=== PATIENT | female | born 1980 | race Caucasian/White ===

== ENCOUNTER 2016-07-23 16:19 | Emergency (ER) | payer MEDICAID ==
--- NOTE | 2016-07-23 16:37 | ER Document Report ---
ED Medical Screen (RME) - General Stated Complaint: COUGH Time seen by provider: 16:36 Mode of Arrival: Ambulatory Information source: Patient TRAVEL OUTSIDE OF THE [place] IN LAST 30 DAYS: No - HPI Patient complains to provider of: COUGH, CONGESTION, SINUS PAIN Onset: Last week Onset/Duration: Sudden Context: HX BRONCHITIS AND SINUS INFECTION EVERY YEAR PER PT Severity: Severe Pain Level: 5 Associated Symptoms: Chills, Cough (productive), Headache, Sinus pain/drainage. denies: Fever Exacerbated by: Denies, Standing Similar symptoms previously: Yes Recently seen / treated by doctor: Yes - DENTAL SURGERY LAST FRIDAY - Related Data Smoking: Cigarettes Frequency of alcohol use: None Drug Abuse: None Allergies/Adverse Reactions: ibuprofen [From Motrin] Allergy (Severe, Verified 07/23/16 16:30) SEVERE ABDOMINAL PAIN latex [Latex] Allergy (Severe, Verified 07/23/16 16:30) severe skin irritation Penicillins Allergy (Severe, Verified 07/23/16 16:30) THROAT/TONGUE SWELLING aspirin [Aspirin] Allergy (Intermediate, Verified 07/23/16 16:30) SEVERE ABD PAIN Past Medical History - Past Medical History Cardiac Medical History: Denies: Hx Coronary Artery Disease, Hx Heart Attack, Hx Hypertension Pulmonary Medical History: Reports: Hx Asthma, Hx Bronchitis, Hx COPD Denies: Hx Pneumonia Neurological Medical History: Reports: Hx Migraine. Denies: Hx Cerebrovascular Accident, Hx Seizures Endocrine Medical History: Denies: Hx Diabetes Mellitus Type 1, Hx Diabetes Mellitus Type 2 Musculoskeltal Medical History: Denies Hx Arthritis, Reports Hx Musculoskeletal Deformity, Reports Hx Musculoskeletal Trauma Psychiatric Medical History: Reports: Hx Anxiety, Hx Bipolar Disorder Past Surgical History: Reports: Hx Abdominal Surgery - Ventral hernias, Hx Appendectomy, Hx Oral Surgery - [place] teeth, Hx Orthopedic Surgery - L arm, Hx Tubal Ligation - Immunizations Immunizations up to date: Yes Hx Diphtheria, Pertussis, Tetanus Vaccination: Yes Physical Exam - Vital signs Vitals: Temp Pulse Resp BP Pulse Ox 97.7 F 99 16 148/87 H 96 07/23/16 16:22 07/23/16 16:22 07/23/16 16:22 07/23/16 16:22 07/23/16 16:22 Course - Vital Signs Vital signs: Temp Pulse Resp BP Pulse Ox 97.7 F 99 16 148/87 H 96 07/23/16 16:22 07/23/16 16:22 07/23/16 16:22 07/23/16 16:22 07/23/16 16:22
[2016-07-23] MEDS ORDERED: ACETAMINOPHEN 325 MG TABLET PO ONE (18:09)
[2016-07-23] MEDS ORDERED: OXYMETAZOLINE HCL 0.05% NASAL SPRAY 15 ML BOTTLE NASL ONE (19:11)
[2016-07-23] MEDS ORDERED: GUAIFENESIN 600 MG TABLET.SA PO ONE (19:12)
[2016-07-23] MEDS ORDERED: ALBUTEROL SULFATE HFA (90 MCG/PUFF) 8 GM MDI (1 MDI/ER DISP) IH PRN (19:12)
--- NOTE | 2016-07-23 19:13 | ER Document Report ---
ED General - General Chief Complaint: Cough Stated Complaint: COUGH Mode of Arrival: Ambulatory Notes: Patient is a 36-year-old female, currently active smoker who presents with concerns of sinus congestion, bilateral ear pain, rhinorrhea, and a productive cough. States that her children have had similar illness but have gotten better while she has continued to be sick. She admits that she is not tried anything for her symptoms. States she usually gets azithromycin when she has these symptoms and makes all of her symptoms better. She has not seen a primary care physician regarding today's concerns. Nothing worsens or symptoms. Admits to continuing to smoke throughout the duration of her illness. She denies any shortness of breath, recorded fever, altered mental status, headache or neck pain. TRAVEL OUTSIDE OF THE [place] IN LAST 30 DAYS: No - Related Data Allergies/Adverse Reactions: ibuprofen [From Motrin] Allergy (Severe, Verified 07/23/16 16:30) SEVERE ABDOMINAL PAIN latex [Latex] Allergy (Severe, Verified 07/23/16 16:30) severe skin irritation Penicillins Allergy (Severe, Verified 07/23/16 16:30) THROAT/TONGUE SWELLING aspirin [Aspirin] Allergy (Intermediate, Verified 07/23/16 16:30) SEVERE ABD PAIN Past Medical History - General Information source: Patient - Social History Smoking Status: Current Every Day Smoker Chew tobacco use (# tins/day): Yes Frequency of alcohol use: None Drug Abuse: None Lives with: Spouse/Significant other Family History: Reviewed & Not Pertinent Patient has suicidal ideation: No Patient has homicidal ideation: No - Past Medical History Cardiac Medical History: Denies: Hx Coronary Artery Disease, Hx Heart Attack, Hx Hypertension Pulmonary Medical History: Reports: Hx Asthma, Hx Bronchitis, Hx COPD Denies: Hx Pneumonia Neurological Medical History: Reports: Hx Migraine. Denies: Hx Cerebrovascular Accident, Hx Seizures Endocrine Medical History: Denies: Hx Diabetes Mellitus Type 1, Hx Diabetes Mellitus Type 2 Renal/ Medical History: Denies: Hx Peritoneal Dialysis Musculoskeltal Medical History: Denies Hx Arthritis, Reports Hx Musculoskeletal Deformity, Reports Hx Musculoskeletal Trauma Psychiatric Medical History: Reports: Hx Anxiety, Hx Bipolar Disorder Past Surgical History: Reports: Hx Abdominal Surgery - Ventral hernias, Hx Appendectomy, Hx Oral Surgery - [place] teeth, Hx Orthopedic Surgery - L arm, Hx Tubal Ligation - Immunizations Immunizations up to date: Yes Hx Diphtheria, Pertussis, Tetanus Vaccination: Yes Review of Systems - Review of Systems Notes: Constitutional: Negative for fever. HENT: Positive for sore throat, bilateral ear pain, sinus pressure. Eyes: Negative for visual changes. Cardiovascular: Negative for chest pain. Respiratory: Negative for shortness of breath. Gastrointestinal: Negative for abdominal pain, vomiting or diarrhea. Genitourinary: Negative for dysuria. Musculoskeletal: Negative for back pain. Skin: Negative for rash. Neurological: Negative for headaches, weakness or numbness. 10 point ROS negative except as marked above and in HPI. Physical Exam - Vital signs Vitals: Temp Pulse Resp BP Pulse Ox 97.7 F 99 16 148/87 H 96 07/23/16 16:22 07/23/16 16:22 07/23/16 16:22 07/23/16 16:22 07/23/16 16:22 Interpretation: Hypertensive Notes: PHYSICAL EXAMINATION: GENERAL: Well-appearing, well-nourished and in no acute distress. HEAD: Atraumatic, normocephalic. EYES: Pupils equal round and reactive to light, extraocular movements intact, sclera anicteric, conjunctiva are normal. ENT: nares patent, oropharynx clear without exudates. Moist mucous membranes. NECK: Normal range of motion, supple without lymphadenopathy LUNGS: Breath sounds clear to auscultation bilaterally and equal. No wheezes rales or rhonchi. HEART: Regular rate and rhythm without murmurs ABDOMEN: Soft, nontender, normoactive bowel sounds. No guarding, no rebound. No masses appreciated. EXTREMITIES: Normal range of motion, no pitting or edema. No cyanosis. NEUROLOGICAL: No focal neurological deficits. Moves all extremities spontaneously and on command. PSYCH: Normal mood, normal affect. SKIN: Warm, Dry, normal turgor, no rashes or lesions noted. Course - Re-evaluation Re-evalutation: 07/23/16 19:13 Presentation is most consistent with a viral upper respiratory infection. Patient is overall well appearance, vitals within normal limits, well-hydrated. Patient denies any headache, neck pain, and has no evidence of meningismus on examination. Lungs are clear bilaterally. No evidence of respiratory distress. Based on clinical exam and history, I do not suspect an acute pneumonia, meningitis, strep pharyngitis, or an acute encephalitis. No laboratory or imaging testing is indicated at this time. Will discharge patient with return precautions and followup recommendations. They are in agreement this plan have verbalized understanding return precautions. - Vital Signs Vital signs: Temp Pulse Resp BP Pulse Ox 97.7 F 70 20 115/84 98 07/23/16 16:22 07/23/16 19:40 07/23/16 19:40 07/23/16 19:40 07/23/16 19:40 Discharge - Discharge Clinical Impression: Viral upper respiratory infection Condition: Good Disposition: HOME, SELF-CARE Additional Instructions: Your symptoms are most likely due to a viral infection it should resolve over the next 7-14 days. You should take [id number] guanfacine per bottle instructions to help thin the mucus. For nasal congestion: I would recommend that you get gsru-dxh-[id number] oxymetazoline also known is afrin. Use only per bottle instructions and be sure to never use this for more than 3 days if you can develop severe rebound congestion. You may also use tylenol or ibuprofen as needed for aches and thorat discomfort. Please be sure to drink plenty of fluids and get rest. Return to the emergency department he began having difficulty breathing, chest pain, persistent vomiting, or any other symptoms that are concerning to you. Referrals: ANN MARIE OZUNA MD [Primary Care Provider] - Follow up as needed
[2016-07-23 19:57] VITALS: BP 115/84
== END 2016-07-23 19:40 | disposition home or self-care (01) ==
LOC: ER 16:19
DX: J06.9 Acute upper respiratory infection, unspecified (principal); B97.89 Other viral agents as the cause of diseases classified elsewhere; J44.9 Chronic obstructive pulmonary disease, unspecified; J45.909 Unspecified asthma, uncomplicated; F17.200 Nicotine dependence, unspecified, uncomplicated; R09.81 Nasal congestion; J02.9 Acute pharyngitis, unspecified; H92.03 Otalgia, bilateral; J34.89 Other specified disorders of nose and nasal sinuses; R05 Cough; Z88.6 Allergy status to analgesic agent; Z91.040 Latex allergy status; Z88.0 Allergy status to penicillin
CPT/HCPCS: 99283; J3490 ×4

== ENCOUNTER 2016-09-15 21:25 | Emergency (ER) | payer MEDICAID ==
[2016-09-15 21:39] VITALS: BP 140/91
--- NOTE | 2016-09-15 21:45 | ER Document Report ---
ED Medical Screen (RME) - General Stated Complaint: LEG PAIN Mode of Arrival: Wheelchair Information source: Patient Notes: Patient presents to the emergency department with bilateral lower leg swelling and pain. Patient reports symptoms started Konrad night. RLL with +1 pitting edema. Patient currently be treated for a urinary tract infection and sinus infection. Denies history of cardiac disease, CHF. I have greeted and performed a rapid initial assessment of this patient. A comprehensive ED assessment and evaluation of the patient, analysis of test results and completion of the medical decision making process will be conducted by additional ED providers. TRAVEL OUTSIDE OF THE [place] IN LAST 30 DAYS: No - Related Data Allergies/Adverse Reactions: ibuprofen [From Motrin] Allergy (Severe, Verified 07/23/16 16:30) SEVERE ABDOMINAL PAIN latex [Latex] Allergy (Severe, Verified 07/23/16 16:30) severe skin irritation Penicillins Allergy (Severe, Verified 07/23/16 16:30) THROAT/TONGUE SWELLING aspirin [Aspirin] Allergy (Intermediate, Verified 07/23/16 16:30) SEVERE ABD PAIN Past Medical History - Past Medical History Cardiac Medical History: Denies: Hx Coronary Artery Disease, Hx Heart Attack, Hx Hypertension Pulmonary Medical History: Reports: Hx Asthma, Hx Bronchitis, Hx COPD Denies: Hx Pneumonia Neurological Medical History: Reports: Hx Migraine. Denies: Hx Cerebrovascular Accident, Hx Seizures Endocrine Medical History: Denies: Hx Diabetes Mellitus Type 1, Hx Diabetes Mellitus Type 2 Renal/ Medical History: Denies: Hx Peritoneal Dialysis Musculoskeltal Medical History: Denies Hx Arthritis, Reports Hx Musculoskeletal Deformity, Reports Hx Musculoskeletal Trauma Psychiatric Medical History: Reports: Hx Anxiety, Hx Bipolar Disorder Past Surgical History: Reports: Hx Abdominal Surgery - Ventral hernias, Hx Appendectomy, Hx Oral Surgery - [place] teeth, Hx Orthopedic Surgery - L arm, Hx Tubal Ligation - Immunizations Immunizations up to date: Yes Hx Diphtheria, Pertussis, Tetanus Vaccination: Yes Physical Exam - Vital signs Vitals: Temp Pulse Resp BP Pulse Ox 97.8 F 78 18 140/91 H 97 09/15/16 21:37 09/15/16 21:37 09/15/16 21:37 09/15/16 21:37 09/15/16 21:37 Course - Vital Signs Vital signs: Temp Pulse Resp BP Pulse Ox 97.8 F 78 18 140/91 H 97 09/15/16 21:37 09/15/16 21:37 09/15/16 21:37 09/15/16 21:37 09/15/16 21:37
[2016-09-15 22:16] LABS: ABSOLUTE BASOPHILS # (AUTO) 0.1 10^3/uL (0.0-0.2); ABSOLUTE EOSINOPHILS # (AUTO) 0.2 10^3/uL (0.0-0.6); ABSOLUTE LYMPHOCYTES (AUTO) 3.7 10^3/uL (0.5-4.7); ABSOLUTE MONOCYTES (AUTO) 0.7 10^3/uL (0.1-1.4); ABSOLUTE NEUT (AUTO) 4.5 10^3/uL (1.7-8.2); BASOPHILS % (AUTO) 0.6 % (0-2); EOSINOPHILS % (AUTO) 1.9 % (0-6); HEMATOCRIT 42.9 % (36.0-47.0); HEMOGLOBIN 14.1 g/dL (12.0-15.5); HGB HCT DIFFERENCE -0.6; LYMPHOCYTES % (AUTO) 40.4 % (13-45); MEAN CORPUSCULAR HEMOGLOBIN 29.9 pg (27.0-33.4); MEAN CORPUSCULAR HGB CONC 32.9 g/dL (32.0-36.0); MEAN CORPUSCULAR VOLUME 91 fl (80-97); MONOCYTES % (AUTO) 7.4 % (3-13); RED BLOOD COUNT 4.71 10^6/uL (3.72-5.28); RED CELL DISTRIBUTION WIDTH 13.3 % (11.5-14.0); SEGMENTED NEUTROPHILS % (AUTO) 49.7 % (42-78); WHITE BLOOD COUNT 9.1 10^3/uL (4.0-10.5)
[2016-09-15 22:36] LABS: ALANINE AMINOTRANSFERASE 25 U/L (9-52); ALBUMIN 3.9 g/dL (3.5-5.0); ALKALINE PHOSPHATASE 75 U/L (38-126); ANION GAP 9 (5-19); ASPARTATE AMINO TRANSFERASE 23 U/L (14-36); BILIRUBIN,DIRECT 0.2 mg/dL (0.0-0.4); BILIRUBIN,TOTAL 0.3 mg/dL (0.2-1.3); BLOOD UREA NITROGEN 9 mg/dL (7-20); CALCIUM 9.3 mg/dL (8.4-10.2); CARBON DIOXIDE 29 mmol/L (22-30); CHLORIDE 106 mmol/L (98-107); CREATININE RESULT 0.68 mg/dL (0.52-1.25); GLUCOSE 94 mg/dL (75-110); POTASSIUM 4.5 mmol/L (3.6-5.0); SODIUM 143.7 mmol/L (137-145); TOTAL PROTEIN 6.8 g/dL (6.3-8.2)
[2016-09-15 23:10] LABS: APPEARANCE,URINE TURBID; BILIRUBIN,URINE NEGATIVE (NEGATIVE); GLUCOSE, URINE NEGATIVE (NEGATIVE); KETONES,URINE NEGATIVE (NEGATIVE); LEUKOCYTE ESTERASE,URINE LARGE (NEGATIVE); NITRITE,URINE NEGATIVE (NEGATIVE); PROTEIN,URINE 100 mg/dL (NEGATIVE); URINE SPECIFIC GRAVITY 1.032; UROBILINOGEN,URINE NEGATIVE mg/dL (<2.0)
== END 2016-09-16 00:46 | disposition left against medical advice (07) ==
LOC: ER 21:25
DX: M79.662 Pain in left lower leg (principal); M79.661 Pain in right lower leg; N39.0 Urinary tract infection, site not specified; J32.9 Chronic sinusitis, unspecified; J44.9 Chronic obstructive pulmonary disease, unspecified; Z88.6 Allergy status to analgesic agent; Z91.040 Latex allergy status; Z88.0 Allergy status to penicillin; Z53.20 Procedure and treatment not carried out because of patient's decision for unspecified reasons
CPT/HCPCS: 36415; 80053; 81001; 84703; 85025; 99281

== ENCOUNTER → 2016-09-17 | Outpatient (CLI) | payer MEDICAID ==
--- NOTE | 2016-09-17 16:38 | XCELERA REPORT ---
[address] [address] Lower Extremity Venous Evaluation Name: ELIDA LEIJA Age: 36 yrs Gender: Female : 1980 Patient Status: Outpatient Patient Location: Study Date: 09/17/2016 02:55 PM Procedure: Color flow and duplex imaging bilaterally of the veins of the lower extremities as well as the Common Femoral veins. Reason For Study: PHLEBITIS Ordering Physician: ANN MARIE OZUNA Performed By: Brenda Jaramillo Right Sided Venous Evaluation Normal vessel filling wall to wall, compression and augmentation as well as Colour flow down to the infrageniculate veins. Left Sided Venous Evaluation Normal vessel filling wall to wall, compression and augmentation as well as Colour flow down to the infrageniculate veins. Critical Findings called in at 1640. Interpretation Summary No duplex evidence of DVT or obstruction in the bilateral lower extremities. : ANN MARIE OZUNA > Lucas Peters
== END ==
LOC: SP 14:28
PROVIDERS: ATTEND Internal Medicine
DX: I80.13 Phlebitis and thrombophlebitis of femoral vein, bilateral (principal)
CPT/HCPCS: 93970

== ENCOUNTER 2016-12-16 14:29 | Emergency (ER) | payer MEDICAID ==
[2016-12-16 14:38] VITALS: BP 134/89
--- NOTE | 2016-12-16 15:06 | ER Document Report ---
ED GI/ - General Chief Complaint: Vaginal Pain Stated Complaint: URINARY SYMPTOMS Time Seen by Provider: 12/16/16 14:57 Mode of Arrival: Ambulatory Information source: Patient TRAVEL OUTSIDE OF THE [place] IN LAST 30 DAYS: No - HPI Patient complains to provider of: Pelvic pain Onset: Other - 1 month Timing/Duration: Intermittent Quality of pain: Achy Notes: 12/16/16 15:12 This 36-year-old female who presents to the emergency room complaining of vaginal swelling and sensation of her uterus prolapsing when she has a bowel movement, the symptoms have been going on for the past month intermittently, she states she is able to reduce the prolapse herself, she is also had vaginal bleeding for 3 weeks recently which stopped 2 days ago, she does report some pelvic pain after the prolapse, history of hernia repair in the past, states she called her primary care doctor in an attempt to get a referral to see an OB/ [facility] TOOLER, however he advised her to come to the emergency room, she denies any symptoms at present time, stating that she had a bowel movement at 3:00 this morning, she did have to force the patient back up into her vagina at that time , but has no symptoms at the present time - Related Data Allergies/Adverse Reactions: ibuprofen [From Motrin] Allergy (Severe, Verified 12/16/16 14:37) SEVERE ABDOMINAL PAIN latex [Latex] Allergy (Severe, Verified 12/16/16 14:37) severe skin irritation Penicillins Allergy (Severe, Verified 12/16/16 14:37) THROAT/TONGUE SWELLING aspirin [Aspirin] Allergy (Intermediate, Verified 12/16/16 14:37) SEVERE ABD PAIN Past Medical History - General Information source: Patient - Social History Smoking Status: Current Every Day Smoker Family History: Reviewed & Not Pertinent Patient has suicidal ideation: No Patient has homicidal ideation: No - Past Medical History Cardiac Medical History: Denies: Hx Coronary Artery Disease, Hx Heart Attack, Hx Hypertension Pulmonary Medical History: Reports: Hx Asthma, Hx Bronchitis, Hx COPD Denies: Hx Pneumonia Neurological Medical History: Reports: Hx Migraine. Denies: Hx Cerebrovascular Accident, Hx Seizures Endocrine Medical History: Denies: Hx Diabetes Mellitus Type 1, Hx Diabetes Mellitus Type 2 Renal/ Medical History: Denies: Hx Peritoneal Dialysis Musculoskeltal Medical History: Denies Hx Arthritis, Reports Hx Musculoskeletal Deformity, Reports Hx Musculoskeletal Trauma Psychiatric Medical History: Reports: Hx Anxiety, Hx Bipolar Disorder Past Surgical History: Reports: Hx Abdominal Surgery - Ventral hernias, Hx Appendectomy, Hx Oral Surgery - [place] teeth, Hx Orthopedic Surgery - L arm, Hx Tubal Ligation - Immunizations Immunizations up to date: Yes Hx Diphtheria, Pertussis, Tetanus Vaccination: Yes Review of Systems - Review of Systems Constitutional: No symptoms reported EENT: No symptoms reported Cardiovascular: No symptoms reported Respiratory: No symptoms reported Gastrointestinal: No symptoms reported Genitourinary: No symptoms reported Female Genitourinary: See HPI Musculoskeletal: No symptoms reported Skin: No symptoms reported Hematologic/Lymphatic: No symptoms reported Neurological/Psychological: No symptoms reported -: Yes All other systems reviewed and negative Physical Exam - Vital signs Vitals: Temp Pulse Resp BP Pulse Ox 97.8 F 78 20 134/89 H 98 12/16/16 14:36 12/16/16 14:36 12/16/16 14:36 12/16/16 14:36 12/16/16 14:36 - Notes Notes: - General General appearance: Appears well, Alert In distress: None - HEENT Head: Normocephalic, Atraumatic Eyes: Normal Conjunctiva: Normal Extraocular movements intact: Yes Eyelashes: Normal Pupils: PERRL - Respiratory Respiratory status: No respiratory distress - Cardiovascular Rhythm: Regular - Abdominal Inspection: Normal - Back Back: Normal - Extremities General upper extremity: Normal inspection General lower extremity: Normal inspection - Neurological Neuro grossly intact: Yes Orientation: AAOx4 Renan Coma Scale Eye Opening: Spontaneous [place] Coma Scale Verbal: Oriented Renan Coma Scale Motor: Obeys Commands Renan Coma Scale Total: 15 - Psychological Associated symptoms: Normal affect, Normal mood - Skin Skin Temperature: Warm Skin Moisture: Dry Skin Color: Normal Course - Re-evaluation Re-evalutation: 12/16/16 15:14 Patient symptoms are consistent with uterine prolapse, however she states she is able to easily reduce the prolapse on her own at home and did so at 3:00 this morning, reports no symptoms at present time, she is mainly requesting a referral to see [facility] SERVICES ASSISTANT for this problem has been going on intermittently over the past month, I did provide her with information for follow-up, however advised her to follow-up with her primary care provider for official referral if insurance requires one, I did offer to place patient in an exam room and perform a full pelvic exam, however she declined stating she will follow-up with [facility] SERVICES [facility]IST[facility] once a referral is obtained by her primary care provider, patient advised to return if any additional concerns, patient acknowledges understanding and agreement with this plan - Vital Signs Vital signs: Temp Pulse Resp BP Pulse Ox 97.8 F 78 20 134/89 H 98 12/16/16 14:36 12/16/16 14:36 12/16/16 14:36 12/16/16 14:36 12/16/16 14:36 Discharge - Discharge Clinical Impression: Uterine prolapse Condition: Stable Disposition: HOME, SELF-CARE Instructions: [facility] Additional Instructions: Follow up with your primary care provider and OBGYN in one to 2 days. Return to the emergency room immediately if symptoms worsen or any additional concerns.
== END 2016-12-16 15:11 | disposition home or self-care (01) ==
LOC: ER 14:29
DX: N81.4 Uterovaginal prolapse, unspecified (principal); F17.200 Nicotine dependence, unspecified, uncomplicated; J44.9 Chronic obstructive pulmonary disease, unspecified; Z88.6 Allergy status to analgesic agent; Z88.0 Allergy status to penicillin; Z91.040 Latex allergy status
CPT/HCPCS: 99283

== ENCOUNTER 2017-02-19 05:13 | Day surgery (SDC) | payer MEDICAID ==
[2017-02-13 11:09] LABS: HEMATOCRIT 47.3 % (36.0-47.0); HEMOGLOBIN 15.7 g/dL (12.0-15.5); HGB HCT DIFFERENCE -0.2; MEAN CORPUSCULAR HEMOGLOBIN 30.7 pg (27.0-33.4); MEAN CORPUSCULAR HGB CONC 33.3 g/dL (32.0-36.0); MEAN CORPUSCULAR VOLUME 92 fl (80-97); RED BLOOD COUNT 5.12 10^6/uL (3.72-5.28); RED CELL DISTRIBUTION WIDTH 14.5 % (11.5-14.0)
[2017-02-13 11:21] LABS: APPEARANCE,URINE SLIGHTLY-CLOUDY; BILIRUBIN,URINE NEGATIVE (NEGATIVE); GLUCOSE, URINE NEGATIVE (NEGATIVE); KETONES,URINE NEGATIVE (NEGATIVE); LEUKOCYTE ESTERASE,URINE TRACE (NEGATIVE); NITRITE,URINE NEGATIVE (NEGATIVE); PROTEIN,URINE NEGATIVE (NEGATIVE); URINE SPECIFIC GRAVITY 1.018; UROBILINOGEN,URINE NEGATIVE mg/dL (<2.0)
[2017-02-13 11:38] LABS: ALANINE AMINOTRANSFERASE 23 U/L (9-52); ALBUMIN 4.4 g/dL (3.5-5.0); ALKALINE PHOSPHATASE 68 U/L (38-126); ANION GAP 9 (5-19); ASPARTATE AMINO TRANSFERASE 17 U/L (14-36); BILIRUBIN,DIRECT 0.4 mg/dL (0.0-0.4); BILIRUBIN,TOTAL 0.4 mg/dL (0.2-1.3); BLOOD UREA NITROGEN 11 mg/dL (7-20); CALCIUM 9.9 mg/dL (8.4-10.2); CARBON DIOXIDE 26 mmol/L (22-30); CHLORIDE 104 mmol/L (98-107); CREATININE RESULT 0.74 mg/dL (0.52-1.25); GLUCOSE 83 mg/dL (75-110); POTASSIUM 4.7 mmol/L (3.6-5.0); SODIUM 138.5 mmol/L (137-145); TOTAL PROTEIN 7.2 g/dL (6.3-8.2)
--- NOTE | 2017-02-13 21:34 | EKG REPORT ---
SEVERITY:- NORMAL ECG - SINUS RHYTHM : Confirmed by: Christina Ayon 13-Feb-2017 21:33:49
[~2017-02-19 05:13] MED LIST: CLINDAMYCIN 900 MG/D5W RTU 50 ML IV PRN; GENTAMICIN SULFATE 120 MG in DEXTROSE 5%-WATER 100 ML IV PRN; LACTATED RINGERS 1000 ML IV PRN
[2017-02-19] MEDS ORDERED: ALBUTEROL SULFATE 0.083% NEB 2.5 MG/3 ML AMPUL NEB ONE (05:31)
--- NOTE | 2017-02-19 06:34 | RADIOLOGY REPORT (SQ) ---
EXAM DESCRIPTION: CHEST SINGLE VIEW COMPLETED DATE/TIME: 02/19/2017 5:51 am REASON FOR STUDY: preop COMPARISON: 12/26/2015. EXAM PARAMETERS: NUMBER OF VIEWS: One view. TECHNIQUE: Single frontal radiographic view of the chest acquired. RADIATION DOSE: NA LIMITATIONS: None. FINDINGS: LUNGS AND PLEURA: No opacities, masses or pneumothorax. No pleural effusion. Prominent in terstitium. MEDIASTINUM AND HILAR STRUCTURES: No masses. Contour normal. HEART AND VASCULAR STRUCTURES: Heart normal in size. Normal vasculature. BONES: No acute findings. HARDWARE: None in the chest. OTHER: No other significant finding. IMPRESSION: NO ACUTE RADIOGRAPHIC FINDING IN THE CHEST. TECHNICAL DOCUMENTATION: JOB ID: [id number]
[2017-02-19] MEDS ORDERED: BUPIVACAINE HCL 0.5%-EPI 1:200000 INJ/PF 30 ML VIAL ONE (06:45)
[2017-02-19] MEDS ORDERED: FENTANYL CITRATE INJ/PF 250 MCG/5 ML AMPULE ONE (06:46)
[2017-02-19] MEDS ORDERED: MIDAZOLAM 2 MG/2 ML INJ ONE (06:47)
[2017-02-19] MEDS ORDERED: FENTANYL CITRATE INJ/PF 100 MCG/2 ML AMPUL ONE (06:47)
[2017-02-19] MEDS ORDERED: IBUPROFEN INJ 800 MG/8 ML VIAL IV ONE (06:48)
[2017-02-19] MEDS ORDERED: PROPOFOL INJ 200 MG/20 ML VIAL IV ONE (06:48)
[2017-02-19] MEDS ORDERED: MORPHINE SULFATE 10 MG/ML INJ ONE (06:48)
[2017-02-19] MEDS ORDERED: ACETAMINOPHEN 0 ML IV ONE (06:48)
[2017-02-19] MEDS ORDERED: MORPHINE SULFATE 10 MG/ML INJ IV PRN (08:37)
[2017-02-19] MEDS ORDERED: DIPHENHYDRAMINE HCL 50 MG/ML VIAL IV PRN (08:37)
[2017-02-19] MEDS ORDERED: MEPERIDINE HCL/PF INJ 25 MG/1 ML DISP.SYRIN IV PRN (08:37)
[2017-02-19] MEDS ORDERED: FENTANYL CITRATE INJ/PF 100 MCG/2 ML AMPUL IV PRN ×3 (08:37)
[2017-02-19] MEDS ORDERED: PROMETHAZINE HCL INJ 25 MG/1 ML VIAL IV PRN (08:37)
[2017-02-19] MEDS: FENTANYL CITRATE INJ/PF 100 MCG/2 ML AMPUL ONE ×2 (09:52→10:01)
[2017-02-19] MEDS ORDERED: RINGERS SOLUTION,LACTATED 1,000 ML IV PRN (09:57)
[2017-02-19] MEDS ORDERED: KETOROLAC TROMETHAMINE INJ/PF 30 MG/1 ML SDV ONE (10:13)
[2017-02-19] MEDS: OXYCODONE-ACETAMINOPHEN 5-325 MG TABLET PO PRN ×2 (11:03→21:35)
[2017-02-19] MEDS ORDERED: DEXAMETHASONE SOD PHOSPHATE INJ 4 MG/1 ML VIAL ONE (11:10)
[2017-02-19] MEDS ORDERED: GLYCOPYRROLATE INJ 0.4 MG/2 ML VIAL ONE (11:10)
[2017-02-19] MEDS ORDERED: SUCCINYLCHOLINE CHLORIDE INJ 200 MG/10 ML VIAL ONE (11:10)
[2017-02-19] MEDS ORDERED: LIDOCAINE 2% INJ-PF (20 MG/ML) 10 ML AMPUL ONE (11:10)
[2017-02-19] MEDS ORDERED: ONDANSETRON HCL INJ/PF 4 MG/2 ML SDV ONE (11:10)
[2017-02-19] MEDS: KETOROLAC TROMETHAMINE INJ/PF 30 MG/1 ML SDV IV SCH ×2 (14:47→21:31)
--- NOTE | 2017-02-19 15:34 | OPERATIVE REPORT E ---
Operative Report NAME: ELIDA LEIJA : 1980 AGE: 36Y DATE OF SURGERY: 02/19/2017 ROOM: 208 PREOPERATIVE DIAGNOSES: 1. Abnormal uterine bleeding. 2. Pelvic pain. 3. Complete ureterovaginal prolapse. POSTOPERATIVE DIAGNOSES: 1. Abnormal uterine bleeding. 2. Pelvic pain. 3. Complete ureterovaginal prolapse. PROCEDURE: Total hysterectomy with bilateral salpingectomy and a Pruitt culdoplasty as well as a posterior colporrhaphy. SURGEON: PARAG ABBASI M.D. ANESTHESIOLOGIST: SHIVA SALGADO M.D. ANESTHESIA: General. FINDINGS: A 12-week uterus with a grade 3 prolapse to the introitus of the vagina both anteriorly and posteriorly. Normal cervix. Left ovary had a small hemorrhagic cyst that did rupture during the procedure. The right ovary was normal in appearance. Both fallopian tubes were also normal in appearance. COMPLICATIONS: None. ESTIMATED BLOOD LOSS: 100 mL. SPECIMENS REMOVED: Uterus, fallopian tubes, and cervix. PROCEDURE IN DETAIL: The patient was taken to the operating room, prepared and draped in the normal sterile fashion in a dorsal lithotomy position in [facility]. A weighted speculum was placed in the posterior aspect of vagina after an exam under anesthesia was performed with the above findings noted. A angled retractor was placed in the anterior aspect of the vagina to hold the bladder away, after the bladder had been cathed with a Valentin catheter to gravity. The cervix was then grasped with a single-tooth tenaculum and inspected for the uterovesical junction on the anterior aspect of the mucosa. The cervix was then injected with approximately 20 mL of Lidocaine 0.25% with epi, and the cervix was then scored with a 10 blade scalpel circumferentially. The anterior and posterior mucosa was then dissected away with the Abad scissors sharply as well as bluntly with an open Ray-Raoul. Posteriorly, the mucosa was grasped and the posterior cul-de-sac was entered sharply with Abad scissors and a [place] weighted speculum replaced the previous weighted speculum. I then placed a Lulu clamp on the uterosacral ligaments bilaterally and transected these and tied them off with 0-Vicryl and placed a Hemostat for marking on both sides, then continued with dissection of the mucosa on the anterior aspect until I entered the anterior cul-de-sac and a Purvis retractor was then placed into the anterior peritoneal cavity. Then, using the LigaSure and staying well within my previous suturing, this was used to transect the uterine arteries to the level of the fundus. At the fundus, the utero-ovarian ligament was then transected with the LigaSure as well until the uterus and cervix were freed. The fallopian tubes were identified and tagged with Babcocks and the fallopian tubes were then transected at the mesosalpinx using a LigaSure until those were freed and removed out of the field as well. The Pruitt culdoplasty was then performed using an 0 Vicryl and placing a stitch in the midline, and then extending the stitch to the uterosacral ligament, skimming the posterior vaginal mucosa and then tying the sutures down in the midline for support. The vaginal cuff was then closed with an 0-Vicryl runner. At this time, another exam was placed and it was found that the Pruitt culdoplasty did provide the patient with significant improvement in her prolapse and there was some concerns that any further anterior posterior repair might actually remove additional vaginal mucosa and thereby shortening the length of the vagina, so I decided that rather than do an extensive anterior and posterior repair, since we had gotten such good improvement with the culdoplasty, I would do a posterior colporrhaphy and so the mucosa covering the bulbocavernosus muscles was then injected with again about 10 mL of 0.25% lidocaine with epi, and the mucosa was then scored in a atilio configuration at the posterior fourchette. This mucosa was then dissected out using Metzenbaums. The underlying bulbocavernosus muscles were exposed and these were brought together with two [id number]-eg-sbkfob of 0 Vicryl. The overlying mucosa was then reapproximated over top of the sutures using 4-0 Vicryl in a subcutaneous fashion. Patient's exam was performed once more and it was found to be well supported. The patient was then taken down from dorsal lithotomy position. Sponge, lap, and needle counts were correct x2 and the patient was taken to recovery in a stable condition. DICTATING PHYSICIAN: PARAG ABBASI M.D. [id number] PHY#: [id number] ID: [id number] JOB#: [id number] ACCT: [id number] cc:PARAG ABBASI M.D. >
[2017-02-19] MEDS: MORPHINE SULFATE 10 MG/ML INJ IV PRN ×2 (18:04→23:12)
[2017-02-20] MEDS: OXYCODONE-ACETAMINOPHEN 5-325 MG TABLET PO PRN ×2 (05:05→09:32)
[2017-02-20] MEDS: KETOROLAC TROMETHAMINE INJ/PF 30 MG/1 ML SDV IV SCH (05:05)
[2017-02-20 06:51] LABS: ABSOLUTE BASOPHILS # (AUTO) 0.1 10^3/uL (0.0-0.2); ABSOLUTE NEUT (AUTO) 11.2 10^3/uL (1.7-8.2); BASOPHILS % (AUTO) 0.4 % (0-2); EOSINOPHILS % (AUTO) 0.2 % (0-6); HEMOGLOBIN 14.2 g/dL (12.0-15.5); HGB HCT DIFFERENCE 0.6; LYMPHOCYTES % (AUTO) 19.6 % (13-45); MEAN CORPUSCULAR HEMOGLOBIN 31.4 pg (27.0-33.4); MEAN CORPUSCULAR HGB CONC 33.8 g/dL (32.0-36.0); MEAN CORPUSCULAR VOLUME 93 fl (80-97); MONOCYTES % (AUTO) 6.5 % (3-13); RED BLOOD COUNT 4.52 10^6/uL (3.72-5.28); RED CELL DISTRIBUTION WIDTH 14.8 % (11.5-14.0); SEGMENTED NEUTROPHILS % (AUTO) 73.3 % (42-78); WHITE BLOOD COUNT 15.3 10^3/uL (4.0-10.5)
--- NOTE | 2017-02-20 10:50 | PDOC DISCHARGE SUMMARY ---
General - Admit/Disc Date/PCP Admission Date/Primary Care Provider: ANN MARIE OZUNA Discharge Date: 02/20/17 - Discharge Diagnosis (1) Abnormal uterine bleeding Is this a current diagnosis for this admission?: Yes (2) Uterovaginal prolapse, complete Is this a current diagnosis for this admission?: Yes (3) Pelvic pain Is this a current diagnosis for this admission?: Yes - Additional Information Home Medications: Clonazepam [Klonopin 1 mg Tablet] 1 mg PO DAILY PRN 05/09/14 Methocarbamol [Robaxin] 500 mg PO DAILY 05/09/14 Esomeprazole Magnesium [Nexium] 20 mg PO DAILY 07/26/15 Zolpidem Tartrate [Ambien] 10 mg PO QHS 07/26/15 Oxycodone HCl/Acetaminophen [Percocet 7.5-325 Mg Tablet] 1 each PO Q4HP PRN #30 tablet 07/28/15 Doxycycline Hyclate 100 mg PO BID #24 capsule 12/26/15 Butalb/Acetaminophen/Caffeine [Fioricet (50-325-40 mg) Tablet] 1 - 2 tab PO Q4H PRN #20 tab 03/21/16 Clindamycin HCl [Cleocin HCl] 150 mg PO Q6 7 Days capsule 06/16/16 Hydrocodone/Acetaminophen [[place] 5-325 mg Tablet] 1 tab PO Q6HP PRN #7 tablet History of Present Illness History of Present Illness: ELIDA LEIJA is a 36 year old female Hospital Course Hospital Course: underwent TVH w/ posterior repair without difficulty. Physical Exam - Physical Exam Vital Signs: Temp Pulse Resp BP Pulse Ox 97.9 F 74 18 136/74 H 99 02/20/17 08:07 02/20/17 08:07 02/20/17 08:07 02/20/17 08:07 02/20/17 08:07 Intake & Output 02/19/17 02/20/17 02/21/17 06:59 06:59 06:59 Intake Total 0 1400 Output Total 3625 Balance 0 -2225 Weight 80.74 kg General appearance: PRESENT: no acute distress, cooperative GI/Abdominal exam: PRESENT: soft, tenderness - appropriate for post op Result Laboratory Results: 02/20/17 06:13 02/13/17 10:17 02/20/17 06:13 WBC 15.3 H RBC 4.52 Hgb 14.2 Hct 42.0 MCV 93 MCH 31.4 MCHC 33.8 RDW 14.8 H Plt Count 235 Seg Neutrophils % 73.3 Lymphocytes % 19.6 Monocytes % 6.5 Eosinophils % 0.2 Basophils % 0.4 Absolute Neutrophils 11.2 H Absolute Lymphocytes 3.0 Absolute Monocytes 1.0 Absolute Eosinophils 0.0 Absolute Basophils 0.1 Impressions: Chest X-Ray 02/19/17 00:00 IMPRESSION: NO ACUTE RADIOGRAPHIC FINDING IN THE CHEST. Plan Discharge Plan: discharge home with scheduled f/u Time Spent: Less than 30 Minutes
[2017-02-20 11:06] VITALS: BP 132/86
== END 2017-02-20 11:20 | disposition home or self-care (01) ==
LOC: OROUT 05:13 → 2N 10:51 → OROUT 02-20 11:20
PROVIDERS: ATTEND Obstetrics & Gynecology
PROC: 0UTC7ZZ Resection of Cervix, Via Natural or Artificial Opening (ICD-10-PCS; 2017-02-19)
PROC: 0UT77ZZ Resection of Bilateral Fallopian Tubes, Via Natural or Artificial Opening (ICD-10-PCS; 2017-02-19)
PROC: 0JQC0ZZ Repair Pelvic Region Subcutaneous Tissue and Fascia, Open Approach (ICD-10-PCS; 2017-02-19)
PROC: 0UT97ZZ Resection of Uterus, Via Natural or Artificial Opening (ICD-10-PCS; principal; 2017-02-19 07:30)
DX: N93.8 Other specified abnormal uterine and vaginal bleeding (principal); N81.2 Incomplete uterovaginal prolapse; N81.6 Rectocele; N72 Inflammatory disease of cervix uteri; N83.8 Other noninflammatory disorders of ovary, fallopian tube and broad ligament; F17.210 Nicotine dependence, cigarettes, uncomplicated; Z79.899 Other long term (current) drug therapy; Z88.0 Allergy status to penicillin; Z91.040 Latex allergy status
CPT/HCPCS: 58262; 57250; 93005; 86900; 86901; 36415 ×2; 86850; 85025; 85027; 81025; 80053; 81001; 88307 ×2; 71010; 93010; 94640; J2250; J3490 ×3; J1100; J3010 ×2; J1580; J1885 ×2; J2270; J0330; J2405; J7120; J2704; 840; J0131; J1741

== ENCOUNTER 2017-10-10 19:04 | Emergency (ER) | payer MEDICAID ==
[2017-10-10] MEDS ORDERED: DEXAMETHASONE SOD PHOS INJ 10 MG/1 ML VIAL IM ONE (20:35)
--- NOTE | 2017-10-10 20:46 | ER Document Report ---
HPI - HPI Pain Level: 0 Notes: Patient is a 37-year-old female with no significant past medical history presents to the ED complaining of sore throat and left ear pain 3 days. Patient states that she was exposed to someone with strep. Patient states that she has had difficulty swallowing due to the pain, but is still drinking fluids. She is urinating normally and having normal bowel movements. She has not been using any aicv-zvz-mykztyh meds for symptoms. Denies any previous history of abscess. Immunizations are reported to be up-to-date. No other concerns or complaints at this time. Denies any headache, fever, neck pain, URI , chest pain, palpitations, syncope, cough, shortness of breath, wheeze, dyspnea , abdominal pain, nausea/vomiting/diarrhea, urinary retention, dysuria, hematuria, or rash. - ROS Systems Reviewed and Negative: Yes All other systems reviewed and negative - CONSTITUTIONAL Constitutional: REPORTS: Chills. DENIES: Fever - EENT EENT: REPORTS: Sore Throat, Ear Pain. DENIES: Eye problems - REPRODUCTIVE Reproductive: DENIES: : Past Medical History - Social History Smoking Status: Current Every Day Smoker Chew tobacco use (# tins/day): No Frequency of alcohol use: None Drug Abuse: None Family History: Reviewed & Not Pertinent Patient has suicidal ideation: No Patient has homicidal ideation: No - Past Medical History Cardiac Medical History: Denies: Hx Coronary Artery Disease, Hx Heart Attack, Hx Hypertension Pulmonary Medical History: Reports: Hx Asthma, Hx Bronchitis, Hx COPD Denies: Hx Pneumonia Neurological Medical History: Reports: Hx Migraine. Denies: Hx Cerebrovascular Accident, Hx Seizures Endocrine Medical History: Denies: Hx Diabetes Mellitus Type 1, Hx Diabetes Mellitus Type 2 Renal/ Medical History: Denies: Hx Peritoneal Dialysis Musculoskeltal Medical History: Denies Hx Arthritis, Reports Hx Musculoskeletal Deformity, Reports Hx Musculoskeletal Trauma Psychiatric Medical History: Reports: Hx Anxiety, Hx Bipolar Disorder Past Surgical History: Reports: Hx Abdominal Surgery - Ventral hernias, Hx Appendectomy, Hx Oral Surgery - [place] teeth, Hx Orthopedic Surgery - L arm, Hx Tubal Ligation - Immunizations Immunizations up to date: Yes Hx Diphtheria, Pertussis, Tetanus Vaccination: Yes Vertical Provider Document - CONSTITUTIONAL Agree With Documented VS: Yes Notes: PHYSICAL EXAMINATION: GENERAL: Well-appearing, well-nourished and in no acute distress. A&Ox4. Answers questions appropriately. Moves comfortably w/o notable distress HEAD: Atraumatic, normocephalic. EYES: Pupils equal round and reactive to light, extraocular movements intact, sclera anicteric, conjunctiva are normal. ENT: EAC clear b/l. TM's intact b/l without erythema, fluid, or perforation. Nares patent and with clear discharge. oropharynx erythema. 2+ tonsilar hypertrophy with erythema and exudate b/l. No palatine shift. Uvula midline. No tongue protrusion. No drooling or airway compromise. Moist mucous membranes. No sinus tenderness. No stridor. NECK: Normal range of motion, supple without lymphadenopathy. No rigidity/ meningismus. LUNGS: Breath sounds clear to auscultation bilaterally and equal. No wheezes rales or rhonchi. No retractions HEART: Regular rate and rhythm without murmurs, rubs, gallops. ABDOMEN: Soft, nontender, nondistended abdomen. No guarding, no rebound. No masses appreciated. Normal bowel sounds present. No CVA tenderness bilaterally. No hepatosplenomegaly. NEUROLOGICAL: Normal speech, normal gait. Normal sensory, motor exams PSYCH: Normal mood, normal affect. SKIN: Warm, Dry, normal turgor, no rashes or lesions noted. - INFECTION CONTROL TRAVEL OUTSIDE OF THE [place] IN LAST 30 DAYS: No Course - Re-evaluation Re-evalutation: 10/10/17 21:23 Patient is an afebrile, well-hydrated, 37-year-old female who presents to the ED with acute strep pharyngitis. Vitals are acceptable. PE is otherwise unremarkable. Rapid strep was positive. Decadron given IM today. Patient is allergic to penicillins so I will be sending her home with a prescription for clindamycin. Low suspicion for any meningitis, sepsis, peritonsillar/ pharyngeal abscess, respiratory compromise, Drwe's, or other emergent systemic condition at this time. Patient is aware this condition can change from initial presentation and she needs to monitor symptoms closely. Conservative measures otherwise for symptoms. Recheck with your PCM in 3-5 days. Return to the ED with any worsening/concerning symptoms otherwise as reviewed in discharge. Patient is in agreement. - Vital Signs Vital signs: Temp Pulse Resp BP Pulse Ox 98.7 F 109 H 16 128/88 H 95 04/20/18 19:33 10/10/17 19:33 10/10/17 19:33 10/10/17 19:33 10/10/17 19:33 Discharge - Discharge Clinical Impression: Acute streptococcal pharyngitis Condition: Stable Disposition: HOME, SELF-CARE Instructions: Strep Throat ([facility]), Clindamycin ([facility]) Additional Instructions: Maintain adequate fluid intake Take meds as directed Salt water gargles, throat sprays, mouthwash rinse, peroxide gargles tylenol/ibuprofen as needed New toothbrush tomorrow evening over the counter cold medication as needed for symptoms F/u: with your PCM in 3-5 days for a recheck Consider consult with ENT for ongoing/worsening symptoms Return to the ED with any fever, worsening pain, chest pain, neck pain/stiffness , shortness of breath, cough, drooling, trouble swallowing/breathing, abdominal pain, n/v/d, rash, or worsening/concerning symptoms otherwise. Prescriptions: Clindamycin HCl [Cleocin 300 mg Capsule] 300 mg PO TID #30 capsule Nystatin/Dexameth/Diphen [Magic Mouthwash ([facility] Formula) Susp] 5 ml PO QID #120 ml Forms: Elevated Blood Pressure, Smoking Cessation Education Referrals: CLOTILDE KOEHLER DO [ASSOCIATE] - Follow up as needed
[2017-10-10 21:50] VITALS: BP 113/95
== END 2017-10-10 21:50 | disposition home or self-care (01) ==
LOC: ER 19:04
DX: J02.0 Streptococcal pharyngitis (principal); H92.02 Otalgia, left ear; F17.200 Nicotine dependence, unspecified, uncomplicated
CPT/HCPCS: 99283; 96372; 87880; J1100

== ENCOUNTER → 2017-11-05 | Outpatient (CLI) | payer MEDICAID ==
--- NOTE | 2017-11-05 14:11 | RADIOLOGY REPORT (SQ) ---
EXAM DESCRIPTION: CT ABD/PELVIS WITH IV ORAL COMPLETED DATE/TIME: 11/05/2017 1:44 pm REASON FOR STUDY: LEFT UPPER QUADRANT ABDOMINAL SWELLING, MASS, AND LUMP R19.02 LEFT UPPER QUADRANT ABDOMINAL SWELLING, MASS AND LUMP COMPARISON: CT abdomen pelvis 07/19/2015 TECHNIQUE: CT scan of the abdomen and pelvis performed using helical scanning technique with dynamic intravenous contrast injection. The patient drank oral contrast. Images reviewed with lung, soft ti ssue, and bone windows. Reconstructed coronal and sagittal MPR images reviewed. Delayed images for ev aluation of the urinary system also acquired. All images stored on PACS. All CT scanners at this facility use dose modulation, iterative reconstruction, and/or weight based d osing when appropriate to reduce radiation dose to as low as reasonably achievable (ALARA). [facility]: Dose Right [facility]: CareDose [facility]: Dose Right [facility]: Teradose 4D [facility]: Moodyo CONTRAST TYPE AND DOSE: 91 mL of IV Isovue 370- low osmolar. RENAL FUNCTION: None required. The patient is less than 50 years old. RADIATION DOSE: CT Rad equipment meets quality standard of care and radiation dose reduction techniq ues were employed. CTDIvol: 11.0 - 13.0 mGy. DLP: 1247 mGy-cm.. LIMITATIONS: None. FINDINGS: LOWER CHEST: No significant findings. No nodules or infiltrates. LIVER: Normal size. No masses. No dilated ducts. SPLEEN: Normal size. No focal lesions. PANCREAS: No masses. No significant calcifications. No adjacent inflammation or peripancreatic fluid collections. Pancreatic duct not dilated. GALLBLADDER: No identified stones by CT criteria. No inflammatory changes to suggest cholecystitis. ADRENAL GLANDS: No significant masses or asymmetry. RIGHT KIDNEY AND URETER: No solid masses. No significant calcifications. No hydronephrosis or hyd roureter. LEFT KIDNEY AND URETER: No solid masses. No significant calcifications. No hydronephrosis or hydr oureter. AORTA AND VESSELS: No aneurysm. No dissection. Renal arteries, SMA, celiac without stenosis. RETROPERITONEUM: No retroperitoneal adenopathy, hemorrhage or masses. BOWEL AND PERITONEAL CAVITY: Patient drank oral contrast. No evidence of bowel obstruction. No free intraperitoneal air or fluid. No gross bowel wall thickening or surrounding inflammation in the mes enteric fat. APPENDIX: Surgically absent PELVIS: No mass. No free fluid. Normal bladder. Post hysterectomy. Normal-sized ovaries are identif ied on axial image 73 ABDOMINAL WALL: No masses. Intact laparoscopic umbilical hernia repair. BONES: No significant or acute findings. OTHER: No other significant finding. IMPRESSION: NO SIGNIFICANT OR ACUTE FINDING IN THE ABDOMEN OR PELVIS ON CT SCAN WITH IV CONTRAST. TECHNICAL DOCUMENTATION: JOB ID: [id number] Quality ID # [id number]: Final reports with documentation of one or more dose reduction techniques (e.g., Au tomated exposure control, adjustment of the mA and/or kV according to patient size, use of iterative reconstruction technique) 2010 [employer]- All Rights Reserved Reading location - IP/workstation name: [email or web address]
== END ==
LOC: RAD 13:04
PROVIDERS: ATTEND Surgery
DX: K42.9 Umbilical hernia without obstruction or gangrene (principal); R19.02 Left upper quadrant abdominal swelling, mass and lump
CPT/HCPCS: 74177

== ENCOUNTER 2018-01-12 11:21 | Emergency (ER) | payer MEDICAID ==
[2018-01-12 11:30] VITALS: BP 147/88
[2018-01-12] MEDS ORDERED: DEXAMETHASONE SOD PHOS INJ 10 MG/1 ML VIAL IM ONE (12:29)
--- NOTE | 2018-01-12 12:35 | ER Document Report ---
HPI - HPI Pain Level: 5 Notes: Patient is a 37-year-old female who presents to the ED complaining of dental pain to #31 as well as a sore throat and right ear pain that radiates down into her right jaw. Patient states her symptoms have been ongoing for the last few days. She is still able to eat and drink, but does have a decreased p.o. intake due to the soreness when she is swallowing. She has been using over-the- counter meds with minimal relief. Denies any headache, fever, injury, neck pain , URI, chest pain, palpitations, syncope, cough, shortness of breath, wheeze, dyspnea, abdominal pain, nausea/vomiting/diarrhea, urinary retention, dysuria, hematuria, or rash. - ROS Systems Reviewed and Negative: Yes All other systems reviewed and negative - REPRODUCTIVE Reproductive: DENIES: : Past Medical History - Social History Smoking Status: Current Every Day Smoker Family History: Reviewed & Not Pertinent - Past Medical History Cardiac Medical History: Denies: Hx Coronary Artery Disease, Hx Heart Attack, Hx Hypertension Pulmonary Medical History: Reports: Hx Asthma, Hx Bronchitis, Hx COPD Denies: Hx Pneumonia Neurological Medical History: Reports: Hx Migraine. Denies: Hx Cerebrovascular Accident, Hx Seizures Endocrine Medical History: Denies: Hx Diabetes Mellitus Type 1, Hx Diabetes Mellitus Type 2 Renal/ Medical History: Denies: Hx Peritoneal Dialysis Musculoskeletal Medical History: Denies Hx Arthritis, Reports Hx Musculoskeletal Deformity, Reports Hx Musculoskeletal Trauma Psychiatric Medical History: Reports: Hx Anxiety, Hx Bipolar Disorder Past Surgical History: Reports: Hx Abdominal Surgery - Ventral hernias, Hx Appendectomy, Hx Oral Surgery - [place] teeth, Hx Orthopedic Surgery - L arm, Hx Tubal Ligation - Immunizations Immunizations up to date: Yes Hx Diphtheria, Pertussis, Tetanus Vaccination: Yes Vertical Provider Document - CONSTITUTIONAL Agree With Documented VS: Yes Notes: PHYSICAL EXAMINATION: GENERAL: Well-appearing, well-nourished and in no acute distress. A&Ox4. Answers questions appropriately. Moves comfortably w/o notable distress HEAD: Atraumatic, normocephalic. EYES: Pupils equal round and reactive to light, extraocular movements intact, sclera anicteric, conjunctiva are normal. ENT: EAC clear b/l. TM's intact b/l without erythema, fluid, or perforation. Nares patent and with clear discharge. oropharynx erythema without exudates. 2 + tonsilar hypertrophy with erythema and b/l exudate. No palatine shift. Uvula midline. No tongue protrusion. No drooling, hoarseness, or airway compromise. Moist mucous membranes. No sinus tenderness. Mouth: Poor dentition. + mild decay and mild gingivitis. No obvious abscess or discharge noted. No facial swelling. + tenderness to tooth #31. NECK: Normal range of motion, supple without lymphadenopathy. No rigidity/ meningismus. LUNGS: Breath sounds clear to auscultation bilaterally and equal. No wheezes rales or rhonchi. No retractions HEART: Regular rate and rhythm without murmurs, rubs, gallops. ABDOMEN: Soft, nontender, nondistended abdomen. No guarding, no rebound. No masses appreciated. Normal bowel sounds present. No CVA tenderness bilaterally. No hepatosplenomegaly. NEUROLOGICAL: Normal speech, normal gait. Normal sensory, motor exams PSYCH: Normal mood, normal affect. SKIN: Warm, Dry, normal turgor, no rashes or lesions noted. - INFECTION CONTROL TRAVEL OUTSIDE OF THE [place] IN LAST 30 DAYS: No Course - Re-evaluation Re-evalutation: 01/12/18 13:05 Patient is an afebrile, well-hydrated, 37-year-old female who presents to the ED with dental pain, suspect nerve root etiology versus infection, and strep pharyngitis. Vitals are acceptable. PE is otherwise unremarkable. Rapid strep positive. No I&D, other labs, or imaging warranted at this time based on H&P. Viscous lidocaine dispensed today. I will send her home with a prescription for cleocin, allergy to PCN. Low suspicion for any meningitis, sepsis, peritonsillar/pharyngeal abscess, respiratory compromise, Rdew's, temporal arteritis, or other emergent systemic condition at this time. Patient is aware this condition can change from initial presentation and she needs to monitor symptoms closely. Decadron given IM today. Conservative measures otherwise for symptoms. Call to schedule an appointment with a dentist for further evaluation and management. Recheck with your PCM this week as well. Return to the ED with any worsening/concerning symptoms otherwise as reviewed in discharge. Patient is in agreement. - Vital Signs Vital signs: Temp Pulse Resp BP Pulse Ox 97.9 F 81 16 147/88 H 96 01/12/18 11:27 07/23/18 11:27 01/12/18 11:27 01/12/18 11:27 01/12/18 11:27 Discharge - Discharge Clinical Impression: Strep pharyngitis, Pain, dental Condition: Stable Disposition: HOME, SELF-CARE Instructions: Clindamycin ([facility]), Toothache ([facility]), Strep Throat ([facility]) Additional Instructions: Maintain adequate fluid intake Take meds as directed Salt water gargles, throat sprays, mouthwash rinse, peroxide gargles tylenol/ibuprofen as needed New toothbrush tomorrow evening over the counter cold medication as needed for symptoms F/u: with your PCM in 2-3 days for a recheck Consider consult with ENT for ongoing/worsening symptoms Reschedule appointment with the dentist. Return to the ED with any fever, worsening pain, chest pain, neck pain/stiffness , shortness of breath, cough, drooling, trouble swallowing/breathing, abdominal pain, n/v/d, rash, or worsening/concerning symptoms otherwise. Prescriptions: Clindamycin HCl [Cleocin 300 mg Capsule] 300 mg PO TID #30 capsule Forms: Elevated Blood Pressure Referrals: [facility] [Provider Group] - Follow up as needed CLOTILDE KOEHLER DO [ASSOCIATE] - Follow up as needed
[2018-01-12] MEDS ORDERED: LIDOCAINE 2% VISCOUS SOLN 20 ML UDCUP PO ONE (12:52)
== END 2018-01-12 13:21 | disposition home or self-care (01) ==
LOC: ER 11:21
DX: J02.0 Streptococcal pharyngitis (principal); K02.9 Dental caries, unspecified; K05.10 Chronic gingivitis, plaque induced; K08.89 Other specified disorders of teeth and supporting structures; H92.01 Otalgia, right ear; F17.200 Nicotine dependence, unspecified, uncomplicated; J44.9 Chronic obstructive pulmonary disease, unspecified; Z88.0 Allergy status to penicillin
CPT/HCPCS: 99282; 96372; 87880; J3490; J1100